=== PATIENT | male | born 1940 | race Caucasian/White ===

== ENCOUNTER 2018-09-21 13:56 | Observation (INO) | payer OTHER ==
[~2018-09-21] VITALS: Ht 190.5 cm; Wt 91.3 kg
[2018-09-21] MEDS ORDERED: ATOR40TA PO (14:07)
[2018-09-21] MEDS ORDERED: HYDCHL12.5 PO (14:07)
[2018-09-21] MEDS ORDERED: METO25ER PO (14:08)
[2018-09-21] MEDS ORDERED: Zantac150 MG PO (14:08)
[2018-09-21] MEDS ORDERED: XARELTO20 MG PO (14:08)
[2018-09-21] MEDS ORDERED: METF500C PO (14:08)
[2018-09-21 16:43] LABS: Troponin I 0.285 ng/mL (0.000-0.040)
[2018-09-21 21:00] LABS: Source, Urine Clean Catch
[2018-09-21 21:05] LABS: Appearance, Urine Clear (Clear); Bilirubin, Urine Neg (Neg); Blood, Urine Neg (Neg); Color, Urine Yellow (P-Yellow); Glucose Qualitative, Urine Neg (Neg); Ketones, Urine Neg (Neg); Leukocyte Esterase, Urine Neg (Neg); Nitrite, Urine Neg (Neg); Protein, Urine Neg (Neg); Urobilinogen, Urine NORM (Normal)
[2018-09-22 00:16] LABS: Troponin I 0.256 ng/mL (0.000-0.040)
--- NOTE | 2018-09-22 03:50 | NUR ---
20 GAUGE IV SALINE LOCK PRESENT ON ADMISSION TO THIS UNIT. NOT DOCUMENTED . iv INFUSING WITHOUT DIFFICULTY
[2018-09-22 05:17] LABS: Hematocrit 35.7 % (37.0-53.0); Hemoglobin 11.5 g/dL (13.5-17.5); Mean Corpuscular HGB 29.9 pg (26.0-34.0); Mean Corpuscular HGB Conc 32.2 g/dL (31.5-36.5); Mean Corpuscular Volume 93 fL (80-100); Mean Platelet Volume 10.1 fL (9.1-12.4); Platelet Count 218 K/mm3 (150-400); RDW Coefficient Variation 15.2 % (11.7-14.2); RDW Standard Deviation 51.8 fL (35.1-46.3); Red Blood Cell Count 3.85 M/mm3 (4.30-5.90); White Blood Cell Count 16.56 K/mm3 (4.00-11.30)
[2018-09-22 05:45] LABS: Alanine Aminotransfer (ALT/SGP 13 U/L (12-78); Albumin, Blood 2.6 g/dL (3.4-5.0); Albumin/Globulin Ratio 0.8 (0.8-1.8); Alk Phos 99 U/L (50-136); Anion Gap 6 mmol/L (6-16); Aspartate Aminotrans (AST/SGOT 11 U/L (12-37); Bilirubin, Total 0.4 mg/dL (0.1-1.0); Blood Urea Nitrogen 26 mg/dL (8-24); Bun/Creatinine Ratio 21.3 (12.0-20.0); CO2, Blood 26 mmol/L (21-32); Calcium, Blood 7.9 mg/dL (8.5-10.1); Chloride, Blood 108 mmol/L (98-108); Creatinine, Blood 1.22 mg/dL (0.60-1.20); Globulin, Blood 3.1 g/dL (2.2-4.0); Glomerular Filtration Rate >60 (60-); Glucose, Blood 92 mg/dL (70-99); Potassium, Blood 4.2 mmol/L (3.5-5.5); Sodium, Blood 140 mmol/L (136-145); Total Protein, Blood 5.7 g/dL (6.4-8.2)
--- NOTE | 2018-09-22 12:35 | NUR ---
RECEIVED RETURN CALL FROM VASCULAR SURGEON DR. REYNOSO FROM SURGICAL SERVICES ([facility]). HE IS AWARE OF THE IMAGING STUDIES SENT TO HIS OFFICE FOR REVIEW.
--- NOTE | 2018-09-22 15:15 | NUR ---
DISCHARGE NOTE PT DISCHARGED VIA W/C POV WITH DAUGHTER AND IN NO ACUTE DISTRESS; IV DISCONTINUED INTACT. MEDICATION RX FAXED TO [facility] PRIOR TO DISCHARGE. VERBALIZED UNDERSTANDING OF FOLLOW UP INSTRUCTIONS.
== END 2018-09-22 15:19 | disposition home health service (06) ==
LOC: ER 13:56 → MEDS 13:57
PROVIDERS: ADMIT Internal Medicine
DX: R42 Dizziness and giddiness (principal); R79.89 Other specified abnormal findings of blood chemistry; E11.9 Type 2 diabetes mellitus without complications; I82.409 Acute embolism and thrombosis of unspecified deep veins of unspecified lower extremity; I71.4 Abdominal aortic aneurysm, without rupture; K21.9 Gastro-esophageal reflux disease without esophagitis; R11.0 Nausea; D72.829 Elevated white blood cell count, unspecified; D64.9 Anemia, unspecified; I10 Essential (primary) hypertension; C44.91 Basal cell carcinoma of skin, unspecified; Z79.899 Other long term (current) drug therapy; Z79.84 Long term (current) use of oral hypoglycemic drugs; Z88.0 Allergy status to penicillin; Z88.1 Allergy status to other antibiotic agents; Z88.8 Allergy status to other drugs, medicaments and biological substances; Z86.73 Personal history of transient ischemic attack (TIA), and cerebral infarction without residual deficits; Z95.828 Presence of other vascular implants and grafts; Z79.01 Long term (current) use of anticoagulants
CPT/HCPCS: 36415; 71275; 74175; 80053; 81003; 82550; 82947; 83605; 83880; 84145; 84484; 85027; 93306; 97116; 97161; 99285-25; G0378; J7030; Q9967

== ENCOUNTER 2018-10-20 06:26 | Emergency (ER) | payer SELFPAY ==
[~2018-10-20] VITALS: Ht 190.5 cm; Wt 90.7 kg
[~2018-10-20 06:26] MED LIST: ATOR40TA PO; HYDCHL12.5 PO; METF500C PO; METO25ER PO; XARELTO20 MG PO; Zantac150 MG PO
[2018-10-20 06:50] LABS: BASOPHILS ABSOLUTE AUTO 0.03 K/mm3 (0.00-0.23); BASOPHILS PERCENT AUTO 0 % (0-2); EOSINOPHILS ABSOLUTE AUTO 0.15 K/mm3 (0.00-0.68); EOSINOPHILS PERCENT AUTO 1 % (0-6); Hematocrit 37.8 % (37.0-53.0); Hemoglobin 12.3 g/dL (13.5-17.5); IMMATURE GRAN ABSOLUTE AUTO 0.02 K/mm3 (0.00-0.10); IMMATURE GRAN PERCENT AUTO 0 % (0-1); LYMPHOCYTES ABSOLUTE AUTO 9.49 K/mm3 (0.84-5.20); LYMPHOCYTES PERCENT AUTO 70 % (21-46); MONOCYTES PERCENT AUTO 2 % (4-13); Mean Corpuscular HGB 29.6 pg (26.0-34.0); Mean Corpuscular HGB Conc 32.5 g/dL (31.5-36.5); Mean Corpuscular Volume 91 fL (80-100); NEUTROPHILS ABSOLUTE AUTO 3.57 K/mm3 (1.96-9.15); NEUTROPHILS PERCENT AUTO 26 % (41-73); Platelet Count 153 K/mm3 (150-400); RDW Coefficient Variation 15.3 % (11.7-14.2); RDW Standard Deviation 50.2 fL (35.1-46.3); Red Blood Cell Count 4.15 M/mm3 (4.30-5.90); White Blood Cell Count 13.56 K/mm3 (4.00-11.30)
[2018-10-20 07:06] LABS: International Normalized Ratio 1.25
[2018-10-20 07:08] LABS: Albumin, Blood 3.2 g/dL (3.4-5.0); Bilirubin, Total 0.5 mg/dL (0.1-1.0); Bun/Creatinine Ratio 11.2 (12.0-20.0); Calcium, Blood 8.5 mg/dL (8.5-10.1); Creatinine, Blood 1.52 mg/dL (0.60-1.20); Globulin, Blood 3.2 g/dL (2.2-4.0); Potassium, Blood 4.2 mmol/L (3.5-5.5); Total Protein, Blood 6.4 g/dL (6.4-8.2)
== END 2018-10-20 10:31 | disposition home or self-care (01) ==
LOC: ER 06:26
PROVIDERS: Emergency Medicine
DX: R42 Dizziness and giddiness (principal); E11.9 Type 2 diabetes mellitus without complications; K21.9 Gastro-esophageal reflux disease without esophagitis; I10 Essential (primary) hypertension; E78.5 Hyperlipidemia, unspecified; D64.9 Anemia, unspecified; Z86.73 Personal history of transient ischemic attack (TIA), and cerebral infarction without residual deficits; Z86.718 Personal history of other venous thrombosis and embolism; Z88.0 Allergy status to penicillin; Z88.8 Allergy status to other drugs, medicaments and biological substances; Z88.1 Allergy status to other antibiotic agents; Z79.899 Other long term (current) drug therapy; Z79.84 Long term (current) use of oral hypoglycemic drugs
CPT/HCPCS: 36415; 70450; 71046; 80053; 85025; 85610; 85730; 93005; 93010; 99285-25

== ENCOUNTER 2020-01-17 16:56 | Emergency (ER) | payer OTHER ==
[~2020-01-17] VITALS: Ht 193 cm; Wt 95.2 kg
[2020-01-17] MEDS ORDERED: DONE10 (17:15)
== END 2020-01-17 20:07 | disposition home or self-care (01) ==
LOC: ER 16:56
DX: S00.81XA Abrasion of other part of head, initial encounter (principal); I10 Essential (primary) hypertension; E11.9 Type 2 diabetes mellitus without complications; K21.9 Gastro-esophageal reflux disease without esophagitis; E78.5 Hyperlipidemia, unspecified; D64.9 Anemia, unspecified; Z88.0 Allergy status to penicillin; Z88.8 Allergy status to other drugs, medicaments and biological substances; Z88.1 Allergy status to other antibiotic agents; Z79.899 Other long term (current) drug therapy; Z79.84 Long term (current) use of oral hypoglycemic drugs; Z86.73 Personal history of transient ischemic attack (TIA), and cerebral infarction without residual deficits; Z86.718 Personal history of other venous thrombosis and embolism; W06.XXXA Fall from bed, initial encounter
CPT/HCPCS: 70450; 72125; 99283-25